=== PATIENT | male | born 1975 | race Caucasian/White ===

== ENCOUNTER 2016-10-10 01:22 | Observation (INO) ==
[2016-10-10] MEDS ORDERED: Aspirin 81 MG TAB.CHEW PO ONE (01:29)
--- NOTE | 2016-10-10 01:33 | Emergency Department Note ---
Disposition Clinical Impression: Chest pain Disposition: Admitted As Inpatient Condition: Good General Adult HPI - General Chief complaint: ED Chest Pain Stated complaint: chest pain Time Seen by Provider: 10/10/16 01:28 Source: patient Limitations: no limitations - History of Present Illness Pain Scale: 6 - Related Data Allergies Allergy/AdvReac Type Severity Reaction Status Date / Time Penicillins [PCN] AdvReac Rash Verified 09/22/15 19:00 Past Medical History - Past Medical History Medical history: Reports: myocardial infarction Surgical history: Reports: no surgical history Psychiatric history: Reports: depression - Social History Smoking Status: Current some day smoker Smokeless Tobacco Status: Yes Alcohol use: Reports: rarely Drug use: Reports: none Physical Exam - General Limitations: no limitations General appearance: alert, in no apparent distress Course Vital Signs Temperature 97.6 F 10/10/16 01:24 Pulse Rate 90 10/10/16 01:24 Respiratory Rate 18 10/10/16 01:24 Blood Pressure 154/93 10/10/16 01:24 O2 Sat by Pulse Oximetry 100 10/10/16 01:24 Temperature 97.7 F 10/10/16 04:00 Pulse Rate 78 10/10/16 04:00 Respiratory Rate 18 10/10/16 04:00 Blood Pressure 95/62 10/10/16 04:00 O2 Sat by Pulse Oximetry 97 10/10/16 04:00 Oxygen Delivery Oxygen Delivery Room Air Medical Decision Making - Lab Data Result diagrams: 10/10/16 02:00 10/10/16 02:00 Lab Results 10/10/16 10/10/16 10/10/16 Range/Units 02:00 02:00 02:00 WBC 10.2 (4.3-11.1) K/mcL RBC 4.70 (4.19-5.50) M/mcL Hgb 14.5 (12.9-16.9) g/dL Hct 42.4 (37.5-50.1) % MCV 90.2 (83.0-100.0) fL MCH 30.9 (28.0-33.3) pg MCHC 34.2 (31.6-35.5) g/dL RDW 12.3 (11.5-14.5) % Plt Count 278 (140-400) K/mcL MPV 10.4 (9.4-12.4) fL Immature Gran % 0.5 (0-4) % Seg Neutrophils % 49.1 % Lymphocytes % 36.7 % Monocytes % 10.1 % Eosinophils % 3.1 % Basophils % 0.5 % Neutrophils # 5.0 (1.6-8.9) K/mcL Lymphocytes # 3.7 (0.6-4.6) K/mcL Monocytes # 1.0 (0.0-1.3) K/mcL Eosinophils # 0.3 (0.0-0.6) K/mcL Basophils # 0.1 (0.0-0.2) K/mcL PT 10.8 (9.4-12.1) Seconds INR 1.0 APTT 30.0 (26.0-36.0) Seconds Sodium 140 (136-145) mEq/L Potassium 3.8 (3.5-4.5) mEq/L Chloride 109 (98-109) mEq/L Carbon Dioxide 21 (19-29) mEq/L BUN 13 (8-26) mg/dL Creatinine 0.88 (0.72-1.25) mg/dL Est GFR ( Amer) > 60 (> 60) Est GFR (Non-Af Amer) > 60 (> 60) BUN/Creatinine Ratio 15 (6-26) Glucose 97 (70-99) mg/dL Calculated Osmolality 290 (280-300) Calcium 9.3 (8.6-10.8) mg/dL Troponin I (0-0.03) ng/mL 10/10/16 Range/Units 02:00 WBC (4.3-11.1) K/mcL RBC (4.19-5.50) M/mcL Hgb (12.9-16.9) g/dL Hct (37.5-50.1) % MCV (83.0-100.0) fL MCH (28.0-33.3) pg MCHC (31.6-35.5) g/dL RDW (11.5-14.5) % Plt Count (140-400) K/mcL MPV (9.4-12.4) fL Immature Gran % (0-4) % Seg Neutrophils % % Lymphocytes % % Monocytes % % Eosinophils % % Basophils % % Neutrophils # (1.6-8.9) K/mcL Lymphocytes # (0.6-4.6) K/mcL Monocytes # (0.0-1.3) K/mcL Eosinophils # (0.0-0.6) K/mcL Basophils # (0.0-0.2) K/mcL PT (9.4-12.1) Seconds INR APTT (26.0-36.0) Seconds Sodium (136-145) mEq/L Potassium (3.5-4.5) mEq/L Chloride (98-109) mEq/L Carbon Dioxide (19-29) mEq/L BUN (8-26) mg/dL Creatinine (0.72-1.25) mg/dL Est GFR ( Amer) (> 60) Est GFR (Non-Af Amer) (> 60) BUN/Creatinine Ratio (6-26) Glucose (70-99) mg/dL Calculated Osmolality (280-300) Calcium (8.6-10.8) mg/dL Troponin I 0.00 (0-0.03) ng/mL Attestation Statement - Attestation Attestation: I examined this patient and my medical decision-making was reviewed with the PUBLIC RELATIONS REPRESENTATIVE/PA/Advanced Practice Nurse/Resident Physician. I agree with the documented findings, disposition and treatment plan as described except to the extent set forth below. [id number] time provided Patient complains of chest discomfort starting 2-1/2 hours ago. He appears in no acute distress on exam. EKG reviewed by me. Patient seen and evaluated in conjunction with the resident physician Dr. Mederos
--- NOTE | 2016-10-10 01:43 | Emergency Department Note ---
Disposition Clinical Impression: Chest pain Qualifiers: Chest pain type: unspecified Qualified Code(s): R07.9 - Chest pain, unspecified Disposition: Admitted As Inpatient Condition: Good Referrals: NO,PCP [Primary Care Provider] - Forms: ED Satisfaction Letter Time of Disposition: 02:44 General Adult HPI - General Chief complaint: ED Chest Pain Stated complaint: chest pain Time Seen by Provider: 10/10/16 01:28 Source: patient Limitations: no limitations Nursing Notes Reviewed: Yes Vital Signs Reviewed: Yes - History of Present Illness HPI Narrative: Patient began having left-sided chest pain around 11:00 tonight. He was at rest when this began. The pain radiates to his left shoulder. He states that the pain started out as a sharp in nature and then turned into a aching dull squeeze. He denies associated shortness of breath or nausea or vomiting. He does state that he has a cough that began on his transport into the hospital. Pain Scale: 6 - Related Data Home Medications Medication Instructions Recorded Confirmed Tadalafil [Cialis] 5 mg PO PRN 11/24/14 11/24/14 Previous Rx's Medication Instructions Recorded Sucralfate [Carafate] 1 gm PO QIDAC #40 tablet 11/24/14 Cephalexin [Keflex] 500 mg PO TID #30 capsule 03/03/15 Allergies Allergy/AdvReac Type Severity Reaction Status Date / Time Penicillins [PCN] AdvReac Rash Verified 09/22/15 19:00 All systems ED: reviewed and negative except as stated. Constitutional: Denies: fever, chills ENT ED: Denies: congestion Cardiovascular: Reports: chest pain. Denies: palpitations, syncope Respiratory: Reports: cough (Began tonight on the way here.). Denies: dyspnea, wheezes, hemoptysis Gastrointestinal: Denies: abdominal pain, nausea, vomiting, diarrhea, hematemesis, melena, hematochezia Genitourinary: Denies: urgency, dysuria, frequency, hematuria Musculoskeletal: Denies: back pain, neck pain Integumentary: Denies: rash Neurological: Denies: headache, weakness, numbness, paresthesias Past Medical History - Past Medical History Attestation: Yes The following information was validated with the patient. Medical history: Reports: myocardial infarction (Patient states that one hospital unit was diagnosed with this but then he was transferred to [place] and told that he was not having an NM.) Surgical history: Reports: no surgical history Psychiatric history: Reports: depression - Social History Smoking Status: Current some day smoker Smokeless Tobacco Status: Yes Alcohol use: Reports: rarely Drug use: Reports: none Physical Exam - General Limitations: no limitations General appearance: alert, in no apparent distress - Head Head exam: atraumatic, normocephalic, normal inspection - Eye Eye exam: Present: normal appearance, PERRL, EOMI. Absent: scleral icterus - ENT ENT exam: normal exam, normal oropharynx, mucous membranes moist - Neck Neck exam: Present: normal inspection, full ROM, trachea midline. Absent: tenderness, meningismus, lymphadenopathy - Chest Chest inspection: Present: normal inspection, symmetric chest wall rise. Absent : tenderness, rash - Respiratory Respiratory exam: Present: normal lung sounds bilaterally. Absent: respiratory distress, wheezes, accessory muscle use - Cardiovascular Cardiovascular exam: Present: regular rate, normal rhythm, normal heart sounds - Abdominal Exam Abdominal exam: Present: soft, Non-Tender, normal bowel sounds. Absent: tenderness, distention, guarding, rebound, rigidity, organomegaly - Extremities Exam Extremities exam: Present: normal inspection, full ROM, normal capillary refill. Absent: tenderness, pedal edema - Back Exam Back exam: Present: normal inspection, full ROM. Absent: tenderness, CVA tenderness (R), CVA tenderness (L) - Neurological Exam Neurological exam: Present: alert, oriented X3 - Psychiatric Psychiatric exam: Present: normal affect, normal mood - Skin Skin exam: Present: warm, dry, intact, normal color. Absent: rash, cyanosis, erythema Course Course Narrative: Male patient presenting to the emergency department complaining of chest pain. He states this began this evening while he was at rest. States it is in the left side of his chest. Initially started out as sharp and also like a squeezing pain. Radiates to his left shoulder. Also reporting a cough that began on he was in route to the hospital. He states that he was told he had a NM before but came to [place] during that time and they said that he did not. He did not have a cardiac catheterization and there were no stents deployed. The patient states he has not had pain like this before. He states that the pain started out as intermittent and is now constant. He is requesting to sit up at the bedside. He denies any shortness of breath. His lung sounds are clear heart tones are normal. Abdomen is soft and nontender. He states he has not taken Cialis or Viagra in the past week. We will give him aspirin as well as nitroglycerin. We will reassess. His EKG showed no signs of ST elevation or depression. We will do a cardiac workup on the patient and I anticipate admission. - Reevaluation(s) Reevaluation #1: Patient resting comfortably in bed. After 3 nitroglycerin he states his chest pain is almost completely relieved. However he is complaining of a headache. I discussed admission with him for further cardiac evaluation and he is agreeable to this. We will admit patient to hospital. Time: 02:42 - Consultations Consultation #1: Dr Pacheco accepted patient in stable condition. Time: 02:42 Vital Signs Temperature 97.6 F 10/10/16 01:24 Pulse Rate 90 10/10/16 01:24 Respiratory Rate 18 10/10/16 01:24 Blood Pressure 154/93 10/10/16 01:24 O2 Sat by Pulse Oximetry 100 10/10/16 01:24 Temperature 97.6 F 10/10/16 01:24 Pulse Rate 90 10/10/16 01:24 Respiratory Rate 18 10/10/16 01:24 Blood Pressure 154/93 10/10/16 01:24 O2 Sat by Pulse Oximetry 90 10/10/16 02:21 Oxygen Delivery Oxygen Delivery Room Air Medical Decision Making - Medical Records Medical records reviewed: Yes I reviewed the patient's medical records. - Lab Data Lab results reviewed: Yes I reviewed the patient's lab results. Result diagrams: 10/10/16 02:00 10/10/16 02:00 Lab Results 10/10/16 10/10/16 10/10/16 Range/Units 02:00 02:00 02:00 WBC 10.2 (4.3-11.1) K/mcL RBC 4.70 (4.19-5.50) M/mcL Hgb 14.5 (12.9-16.9) g/dL Hct 42.4 (37.5-50.1) % MCV 90.2 (83.0-100.0) fL MCH 30.9 (28.0-33.3) pg MCHC 34.2 (31.6-35.5) g/dL RDW 12.3 (11.5-14.5) % Plt Count 278 (140-400) K/mcL MPV 10.4 (9.4-12.4) fL Immature Gran % 0.5 (0-4) % Seg Neutrophils % 49.1 % Lymphocytes % 36.7 % Monocytes % 10.1 % Eosinophils % 3.1 % Basophils % 0.5 % Neutrophils # 5.0 (1.6-8.9) K/mcL Lymphocytes # 3.7 (0.6-4.6) K/mcL Monocytes # 1.0 (0.0-1.3) K/mcL Eosinophils # 0.3 (0.0-0.6) K/mcL Basophils # 0.1 (0.0-0.2) K/mcL PT 10.8 (9.4-12.1) Seconds INR 1.0 APTT 30.0 (26.0-36.0) Seconds Sodium 140 (136-145) mEq/L Potassium 3.8 (3.5-4.5) mEq/L Chloride 109 (98-109) mEq/L Carbon Dioxide 21 (19-29) mEq/L BUN 13 (8-26) mg/dL Creatinine 0.88 (0.72-1.25) mg/dL Est GFR ( Amer) > 60 (> 60) Est GFR (Non-Af Amer) > 60 (> 60) BUN/Creatinine Ratio 15 (6-26) Glucose 97 (70-99) mg/dL Calculated Osmolality 290 (280-300) Calcium 9.3 (8.6-10.8) mg/dL - Radiology Data Radiology results reviewed: Yes I reviewed the patient's radiology results. Chest X-Ray 10/10/16 01:29 IMPRESSION: No acute process. D/ / Suman Menjivar MD / Suman Menjivar MD Interpreting Provider: Suman Menjivar MD - EKG Data EKG #1 EKG attestation: Yes I reviewed and interpreted this EKG. EKG results narrative: Normal sinus rhythm at a rate of 99. KS interval is 152. QRS duration is 98. QT is 323. QTC is 379. No signs of acute ischemia. There is some T-wave inversion in lead 3. Ezekiel was on his previous EKG as well dated 09/22/2015. There are no other significant changes.
[2016-10-10] MEDS: Nitroglycerin 0.4 MG TAB.SUBL SL PRN ×3 (02:10→02:20)
[2016-10-10 02:11] LABS: Basophils # 0.1 K/mcL (0.0-0.2); Basophils % 0.5 %; Eosinophils # 0.3 K/mcL (0.0-0.6); Eosinophils % 3.1 %; Hematocrit 42.4 % (37.5-50.1); Hemoglobin 14.5 g/dL (12.9-16.9); Immature Granulocytes % 0.5 % (0-4); Lymphocytes # 3.7 K/mcL (0.6-4.6); Lymphocytes % 36.7 %; Mean Corpuscular HGB Conc 34.2 g/dL (31.6-35.5); Mean Corpuscular Hemoglobin 30.9 pg (28.0-33.3); Mean Corpuscular Volume 90.2 fL (83.0-100.0); Mean Platelet Volume 10.4 fL (9.4-12.4); Monocytes % 10.1 %; Platelet Count 278 K/mcL (140-400); Red Cell Distribution Width 12.3 % (11.5-14.5); Segmented Neutrophils % 49.1 %
[2016-10-10 02:16] LABS: Prothrombin Time 10.8 Seconds (9.4-12.1)
[2016-10-10 02:25] LABS: BUN/Creatinine Ratio 15 (6-26); Blood Urea Nitrogen 13 mg/dL (8-26); Calcium 9.3 mg/dL (8.6-10.8); Carbon Dioxide 21 mEq/L (19-29); Chloride 109 mEq/L (98-109); Glucose 97 mg/dL (70-99); Osmolality,Calculated 290 (280-300); Potassium 3.8 mEq/L (3.5-4.5); Sodium 140 mEq/L (136-145); eGFR For African Americans > 60 (> 60); eGFR For Non-African Americans > 60 (> 60)
--- NOTE | 2016-10-10 04:10 | Internal Med History&Physical ---
Date of Encounter: 10/10/16 Time of Encounter: 04:08 Assessment and Plan (1) Chest pain Current visit: Yes Status: Acute Ruled out acute coronary syndrome. EKG shows no ST segment shifts. Initial troponin normal. Which 2 more sets of cardiac markers. Troponin remain normal patient will have a pharmacological exercise stress test. Patient had less taken cialis a week ago. He does not take any nitrates at home. He received heparin and famotidine for DVT and peptic ulcer disease prophylaxis respectively. He is full code. Observation admission Qualifiers: Chest pain type: unspecified Qualified Code(s): R07.9 - Chest pain, unspecified Internal Medicine - H&P: HPI Chief complaint: chest pain History of present illness: Mr. Goncalves is a 41 year old male patient presented emergency room today with a main component of chest pain. Approximately 11 PM, patient started complaining of left pectoral chest pain intermittently prompted him to come to emergency room. He received sublingual nitroglycerin with minimal improvement in the pain. He denies any relation of pain to exertion. He mentioned that he had similar pains before and had a stress test 2 years ago was unremarkable. Never had a coronary angiogram. He is having some nonproductive cough. No fevers or chills. Denies worsening of pain with deep inspiration. Patient has a positive family history for premature coronary artery disease and first-degree relatives. Past Med Surg Social Fam HX - Past Medical History Medical history: myocardial infarction (Patient states that one hospital unit was diagnosed with this but then he was transferred to [place] and told that he was not having an SD.) Psychiatric history: depression - Past Surgical History Surgical History: no surgical history - Social History Smoking Status: Current some day smoker Smokeless Tobacco Status: Yes Alcohol use: rarely Drug use: none Internal Medicine - H&P: Meds Allergies Penicillins [PCN] Adverse Reaction (Verified 09/22/15 19:00) Rash All Systems PM: A 10-system review of systems was performed and is negative for pertinent findings except as documented above in the HPI. Review of systems: 10 point review of systems is negative except for HPI - Constitutional Vitals: Temp Pulse Resp BP Pulse Ox 0 F L 90 0 0/0 94 10/10/16 03:09 10/10/16 01:24 10/10/16 03:09 10/10/16 03:09 10/10/16 02:27 Exam: Gen.: patient is alert oriented times 3 cardiac: normal S1 S2 no additional sounds or murmurs chest: no active wheezing or bronchial breathing abdomen soft nontender nondistended normal bowel sounds lower extremity no swelling. Neuro: no new focal deficits Internal Med - H&P Results - Labs CBC & Chem 7: 10/10/16 02:00 10/10/16 02:00
[2016-10-10] MEDS ORDERED: Regadenoson 0.4 MG/5 ML SYRINGE IVP ONE ×2 (06:11→12:26)
[2016-10-10] MEDS: *HR* Heparin 5,000 UNIT/ML VIAL SQ SCH ×2 (08:40→14:12)
[2016-10-10] MEDS ORDERED: Aspirin 81 MG TAB.CHEW PO SCH (09:00)
[2016-10-10] MEDS ORDERED: Famotidine 20 MG TABLET PO SCH (09:00)
[2016-10-10 14:42] VITALS: BP 133/89
--- NOTE | 2016-10-10 14:50 | Nuclear Medicine Stress Report ---
Low Level Regadenoson Name: Tom Goncalves Date of Study: 10/10/2016 Date: 1975 Ht: 66.0 in Medical Record#: [id number] Age: 41 Wt: 200.0 lb Gender: Male Order #: [id number] Location: [facility] IP Room: [facility] [place] Supervising Provider: Cornelius Arias CNP Reading Physician: Dickson Morrissey DO, FACC, FASCA Ordering Physician: Bee Lemos CNP Primary Care Physician: Chencho Bee MD Stress Technologist: Kathy Alba SENIOR OUTSIDE SALES REPRESENTATIVE, CCT Bi Analyst: Amber Bullock Indications: Chest Pain Impression: Low level exercise/ pharmacologic stress ECG is negative for ischemia at level of heart rate achieved. Gated EF = 64%. Perfusion imaging was negative for ischemia or infarct. History: History of Smoking Stress Test Summary: Stress Test Type: Low level pharmacologic Regadenoson 0.4mg/5ml given IV Baseline Information: Initial Heart Rate: 70 Blood Pressure: 112/80 Stress Information: Stress Time: 4 min sec Test Terminated Due to (primary): As per protocol Maximum Blood Pressure: 124/82 Maximum Heart Rate: 114 Percent Maximum Heart Rate Achieved: 63 Double Product: [id number] METS Reached: 2.1 Symptoms: No symptoms Nuclear Summary: SPECT myocardial perfusion imaging using Tc99m Sestamibi given intravenously was performed at rest and following cardiac stress testing. The resting images were obtained following initial dose of 10.3 mCi. Following stress an additional dose of 32.4 mCi was given at peak exercise or 30 seconds post regadenoson infusion. Medication Given: Time Medication Dose Units Route Findings: Stress Note * Resting ECG demonstrated normal sinus rhythm. * No baseline arrhythmias were noted. * Low level exercise/ pharmacologic stress ECG is negative for ischemia at level of heart rate achieved. * Patient had no chest pain during stress. Hemodynamic responses * Normal hemodynamic responses to low level exercise plus pharmacologic stress. Study Quality * Study quality is average. Gated EF % * Gated EF = 64%. Left Ventricle * The left ventricle is not dilated. * LVEDV = 114 mL. NORMALS * Normal wall motion. * Normal Segmental Perfusion in rest. * Normal segmental perfusion in stress. TID * No evidence of transient ischemic dilatation. TID ratio * TID ratio = 1.22. Lung Uptake * There is no evidence of increase lung uptake. Updated by Dickson Morrissey DO, RUSTY, THOMAS, ARTIE on 10/10/2016 2:44:51 PM electronically signed on 10/10/2016 2:45:10 PM with status of Final
--- NOTE | 2016-10-10 15:17 | Discharge Summary ---
Date of Encounter: 10/10/16 Time of Encounter: 15:15 - Discharge Diagnosis (1) Chest pain Priority: Primary Status: Acute Qualifiers: Chest pain type: unspecified Qualified Code(s): R07.9 - Chest pain, unspecified - Discharge Medications Home Medications: Biotin 10,000 mcg PO DAILY 10/10/16 [History] Sildenafil Citrate [Revatio] 20 - 100 mg PO DAILY PRN 10/10/16 [History] Testosterone [Testim] 5 gm TD DAILY 10/10/16 [History] Allergies/Adverse Reactions: Allergies Penicillins [PCN] Adverse Reaction (Verified 10/10/16 10:42) Rash CHILDHOOD OCCURENCE. PATIENT SAYS HE IS NOT SURE IF ALLERGIC,ONLY WAS TOLD HE WAS Procedures/tests Complete & Pending: Procedures Performed prior 72 hours Category Date Time Status NM paula perf SPECT multi [NM] Routine Exams 10/10/16 04:03 Taken SP pharm nuclear stress Routine Y 10/10/16 07:15 Completed Date of admission: 10/10/16 02:48 Primary care physician: PCP NO Discharging clinician: Channing Powell Anticipated date of discharge: 10/10/16 - Patient Status Disposition: Home, Self-Care Condition: Good Functional capacity at discharge: independent ambulation Overall status at discharge: patient is progressing back to baseline - Discharge Instructions Instructions: Chest Pain (DC) Follow Up With: Chencho Bee MD [Partnered Physician] - 10/17/16 10:00 am - Diet and Activity Activity: resume usual activities as tolerated Diet: regular diet Interval History: See below Hospital course: Mr. Goncalves is a 41 year old male with tobacco abuse He was placed on observation to rule out ACS for complains of an atypical chest pain EKG unremarkable, Troponi negative Stress test negative, no ischemia of infarct, EF 64% CXR was negative for any findings Patient is asymptomatic , hemodynamically stable, ambulatory Lifetsyle modification encouraged with emphasis on tobacco cessation, dietary modification and exercise Stable to be discharged home to follow up with PCP Time spent discussing smoking cessation with patient: 3 to 10 minutes - Time Spent with Patient Total time spent providing and/or coordinating discharge services: Less than 30 minutes - Constitutional Vitals: Temp Pulse Resp BP Pulse Ox 97 F L 94 15 133/89 97 10/10/16 14:40 10/10/16 14:40 10/10/16 14:40 10/10/16 14:40 10/10/16 14:40 General appearance: Present: A&O X 3, pleasant, no acute distress - Head Head exam: Present: atraumatic, normocephalic - Eye Eye exam: Present: PERRL, conjuntiva pink, sclera anicteric Pupils: Present: PERRL - Neck Neck exam general surgery: Present: supple, trachea midline. Absent: lymphadenopathy - Respiratory Respiratory exam: Present: CTAB. Absent: accessory muscle use, rales, rhonchi, wheezes - Cardiovascular Cardiovascular exam: Present: RRR, +S1, +S2. Absent: diastolic murmur, gallop, rubs, systolic murmur - GI/Abdominal GI/Abdominal exam: Present: normal bowel sounds, soft, no peritoneal signs. Absent: distended, tenderness - Extremities Exam Extremities exam: Present: warm, radial pulses palpable and symetrical. Absent : calf tenderness, cyanotic, pedal edema - Neurological Exam Neurological exam: Present: alert, CN II-XII intact, oriented X3, no focal deficits. Absent: pronater drift, facial droop, speech deficit - Skin Skin exam: Present: dry, intact
--- NOTE | 2016-10-10 18:06 | Electrocardiograph Report ---
[place] [id number] Test Date: 2016-10-10 Pat Name: Tom Goncalves Department: 105 Room: 3B46 Gender: M Scene Shifter: CARLOS : 1975 Requested By: Chacha Interiano Order Number: [id number] Reading MD: Aamir Helton MD Measurements Intervals [place] Rate: 99 P: 24 PA: 152 QRS: 57 QRSD: 98 T: 13 QT: 323 QTc: 379 Interpretive Statements SINUS RHYTHM WITH SINUS ARRHYTHMIA Electronically Signed On 10-10-2016 18:04:49 EDT by Aamir Helton MD
[2016-10-12 18:22] LABS: CK-BB (CK isoenzymes) 0 % (0-0); CK-MB (CK isoenzymes) 0 % (0-4); CK-MM (CK-isoenzymes) 100 % (96-100)
[2016-10-13 11:14] LABS: CK Total (Ck Isoenzymes) 86 U/L (20-200)
== END 2016-10-10 15:55 | disposition home or self-care (01) ==
LOC: EMEROO 01:22 → 3BNU 01:22
PROVIDERS: ADMIT Hospitalist; ATTEND Nurse Practitioner Family